=== PATIENT | male | born 1995 | race Hispanic/Latino ===

== ENCOUNTER 2016-12-31 12:50 | Emergency (ER) | payer SELFPAY | END 2016-12-31 12:51 | disposition left against medical advice (07) | LOC: ED 12:50 | DX: R10.2 Pelvic and perineal pain (principal); Z53.21 Procedure and treatment not carried out due to patient leaving prior to being seen by health care provider ==

== ENCOUNTER 2017-04-08 09:14 | Emergency (ER) | payer SELFPAY ==
[2017-04-08] MEDS ORDERED: PERCOCET 5/325 PO ONE (12:35)
--- NOTE | 2017-04-08 12:44 | Emergency Department Report ---
Entered by ASHLEY CASTAÑEDA, acting as scribe for NATHANIEL CARLOS PA. HPI - General Chief Complaint: Dental/Oral Time Seen by Provider: 04/08/17 11:51 - HPI HPI: 21 y/o male PMHx of diverticulitis and dental caries presents to the ED c/o right upper and lower wisdom toothaches and mouth pain for 3 days. Rates pain 10 /10 in severity. Patient describes pain as "someone carving into gums." He denies fever, chills, nausea, vomiting, headache, and facial swelling. Took [employer] with no relief. Notes Hx of similar dental pain symptoms. Patient was driven to the ED by family. [facility] Past Medical Hx - Past Medical History Previous Medical History?: Yes Additional medical history: DIVERTICULITIS, Bowel and intestinal problem when he was a child, Dental caries - Surgical History Past Surgical History?: No - Family History Family history: no significant - Social History Smoking Status: Current Every Day Smoker Substance Use Type: Non Opiate Pain - Medications Home Medications: Home Medications Medication Instructions Recorded Confirmed Last Taken Type Acetaminophen/Codeine [Tylenol 1 tab PO Q6H PRN #16 tab 04/08/17 Unknown Rx /Codeine # 3 tab] Amoxicillin [Amoxicillin TAB] 875 mg PO BID #20 tablet 04/08/17 Unknown Rx Ibuprofen [Motrin] 600 mg PO Q8H PRN #21 tablet 04/08/17 Unknown Rx ED Review of Systems ROS: Stated complaint: MOUTH PAIN Other details as noted in HPI Comment: All other systems reviewed and negative Constitutional: denies: chills, fever ENT: dental pain (right upper and lower wisdom tooth pain). denies: ear pain, throat pain, congestion Respiratory: no symptoms reported Cardiovascular: denies: chest pain, palpitations, edema, syncope Gastrointestinal: denies: abdominal pain, nausea, vomiting Musculoskeletal: denies: back pain, arthralgia Skin: denies: other (facial swelling) Neurological: denies: headache Physical Exam - Physical Exam Vital Signs: Vital Signs 04/08/17 09:28 Temperature 97.7 F Pulse Rate 87 Respiratory 20 Rate Blood Pressure 121/74 O2 Sat by Pulse 100 Oximetry General: General: well nourished, well developed, nontoxic in appearance, in no acute distress Physical Exam: Head: Normocephalic, atraumatic Mouth: Moist, no pharyngeal exudate or erythema. Uvula is midline and oral airway is patent. No facial swelling. No peritonsillar abscesses. No cavities present. Fractured right upper wisdom tooth #1. No gum swelling or inflammation present. Tongue is normal. Nose: Normal external appearance, no drainage. Maxillary and frontal sinuses nontender to palpation Neck: Supple, no C-spine tenderness, no tracheal deviation. Nontender to palpation. no adenopathy Ears: Bilateral TMs ar without any redness, swelling, or drainage. Bilateral EAC without any redness, swelling, or drainage. Abdomen: Soft, nontender to palpation in all quadrants, normal bowel sounds in all quadrants and negative CVA tenderness bilaterally. Eyes: Bilateral pupils equal and reactive to light, bilateral EOM intact. Bilateral sclera and conjunctiva without injection. Normal accommodation. Lungs: Clear to auscultation bilaterally, no rhonchi, wheezes, or rales. Normal work of breathing. No use of accessory muscles Extremities: No CCE. +2 pulses. No neurovascular compromise Cardiovascular: S1-S2, regular rate, regular rhythm. No murmurs. Skin: Clean, dry, and intact with no rash and no lesions Psych: Normal mood and behavior ED Course Vital Signs 04/08/17 09:28 Temperature 97.7 F Pulse Rate 87 Respiratory 20 Rate Blood Pressure 121/74 O2 Sat by Pulse 100 Oximetry - Reevaluation(s) Reevaluation #1: 04/08/17 12:36 given Percocet 2 tablets in emergency room for toothache. ED Medical Decision Making - Medical Decision Making ED course: Patient with toothache and here to manage pain. He was found to have fractured tooth to right upper with some tooth. No swelling or cellulitis noted. Nontender around tooth. Gums are normal and he is without cavities. Patient given Percocet 2 tablets in emergency room for toothache. I also with him diagnosis and treatment plan and he needs to follow up with [facility] dental clinic for further treatment of his toothache. He was understanding and discharged home with prescription for Tylenol 3, Motrin and amoxicillin. Critical care attestation.: If time is entered above; I have spent that time in minutes in the direct care of this critically ill patient, excluding procedure time. ED Disposition Clinical Impression: Toothache Fracture, tooth Qualifiers: Encounter type: initial encounter Fracture type: closed Qualified Code(s): S02.5XXA - Fracture of tooth (traumatic), initial encounter for closed fracture Disposition: DISCHARGED TO HOME OR SELFCARE Is pt being admited?: No Does the pt Need Aspirin: No Condition: Stable Instructions: Toothache (ED) Additional Instructions: Follow up with [facility]. Call today to schedule an appointment Please do not drive or operate heavy machinery while taking and Tylenol 3 as this medication will cause her to be drowsy. Prescriptions: Acetaminophen/Codeine [Tylenol /Codeine # 3 tab] 1 tab PO Q6H PRN #16 tab PRN Reason: Toothache Amoxicillin [Amoxicillin TAB] 875 mg PO BID #20 tablet Ibuprofen [Motrin] 600 mg PO Q8H PRN #21 tablet PRN Reason: Pain Referrals: [facility] [Outside] - 04/10/17 Forms: Accompanied Note, Work/School Release Form(ED) This documentation as recorded by the MADDY paiz JASMINE,accurately reflects the service I personally performed and the decisions made by ,NATHANIEL CARLOS PA.
[2017-04-08 12:49] VITALS: BP 126/70
== END 2017-04-08 12:51 | disposition home or self-care (01) ==
LOC: ED 09:14
DX: S02.5XXA Fracture of tooth (traumatic), initial encounter for closed fracture (principal); F17.200 Nicotine dependence, unspecified, uncomplicated; X58.XXXA Exposure to other specified factors, initial encounter; Y93.9 Activity, unspecified; Y92.89 Other specified places as the place of occurrence of the external cause; Y99.8 Other external cause status
CPT/HCPCS: 99282

== ENCOUNTER 2019-12-28 12:45 | Emergency (ER) | payer SELFPAY ==
[2019-12-28 13:45] VITALS: BP 113/65
[2019-12-28] MEDS ORDERED: ACETAMINOPHEN 500 MG TAB PO ONE (13:45)
[2019-12-28] MEDS ORDERED: ONDANSETRON 4 MG ODT TAB PO ONE (13:45)
--- NOTE | 2019-12-28 13:46 | Emergency Department Report ---
Chief Complaint: Abdominal Pain Stated Complaint: LUMP IN GROIN/ABD PAIN Time Seen by Provider: 12/28/19 13:45 - HPI History of Present Illness: 24 y/o male p/w llq pain left groin pain n/v " i think i have a hernia" labs ua needs gu and abd exam ok for minor care Vital Signs 12/28/19 13:43 Temperature 97.6 F Pulse Rate 89 Respiratory 189 H Rate Blood Pressure 113/65 O2 Sat by Pulse 100 Oximetry - Exam Vital Signs: Vital Signs 12/28/19 13:43 Temperature 97.6 F Pulse Rate 89 Respiratory 189 H Rate Blood Pressure 113/65 O2 Sat by Pulse 100 Oximetry MSE screening note: Focused history and physical exam performed. Due to findings the following was ordered: ED Disposition for MSE Condition: Stable
[2019-12-28 14:48] LABS: Hematocrit 43.6 % (35.5-45.6); Hemoglobin 15.1 gm/dl (11.8-15.2); Mean Corpuscular HGB Conc 35 % (32-34); Mean Corpuscular Volume 94 fl (84-94); Platelet Count 295 K/mm3 (140-440); Red Blood Count 4.65 M/mm3 (3.65-5.03); Red Cell Distribution Width 13.2 % (13.2-15.2)
[2019-12-28 15:14] LABS: BUN/Creatinine Ratio 15; Blood Urea Nitrogen 12 mg/dL (9-20); Calcium 9.4 mg/dL (8.4-10.2); Hemolysis Index 9
[2019-12-28] MEDS ORDERED: ONDANSETRON 4 MG ODT TAB ONE (21:11)
[2019-12-28] MEDS ORDERED: ACETAMINOPHEN 500 MG TAB ONE (21:11)
[2019-12-28] MEDS ORDERED: KETOROLAC 30 MG/1 ML INJ IV ONE (22:45)
[2019-12-28] MEDS ORDERED: ONDANSETRON 4 MG/2 ML INJ IV ONE (22:45)
[2019-12-28] MEDS ORDERED: SODIUM CHLORIDE 0.9% 1000 ML 1,000 ML IV ONE (22:45)
[2019-12-28 23:36] LABS: Alanine Aminotransferase 19 units/L (7-56); Albumin 4.2 g/dL (3.9-5)
[2019-12-28 23:38] LABS: Bilirubin,Direct < 0.2 mg/dL (0-0.2)
--- NOTE | 2019-12-29 00:16 | Cat Scan Report ---
CT ABDOMEN AND PELVIS WITH CONTRAST HISTORY: Pt complains of L.L.Q. abdominal pain w/ vomiting.. COMPARISON: None. TECHNIQUE: CT images of the abdomen and pelvis were obtained following administration of intravenous contrast. All CT scans at this location are performed using CT dose reduction for ALARA by means of automated exposure control. CONTRAST: 100 ml of intravenous contrast administered. FINDINGS: Lungs/bones: Lung bases are clear. No acute osseous abnormality. Abdomen/pelvis: The liver, gallbladder, spleen, pancreas, adrenals, left kidney, and proximal GI tra ct appear unremarkable. A tiny simple cyst is seen in the midpole of the kidney. The mid to distal small bowel is slightly prominent and fluid-filled with areas of mild mucosal enhan cement. Similar findings extend into the proximal colon. The urinary bladder and prostate appear normal. No pelvic free fluid. The appendix is normal. There are enlarged inguinal lymph nodes measuring greater than 1 cm in short axis. IMPRESSION: 1. Bowel findings are nonspecific but can be seen with enteritis. 2. Incidental left inguinal adenopathy Signer Name: Nicolas Zafar MD Signed: 12/29/2019 12:11 AM Workstation Name: [id number]
--- NOTE | 2019-12-29 00:46 | Emergency Department Report ---
ED Abdominal Pain HPI - General Chief Complaint: Abdominal Pain Stated Complaint: LUMP IN GROIN/ABD PAIN Time Seen by Provider: 12/28/19 13:45 Source: patient Mode of arrival: Ambulatory Limitations: No Limitations - History of Present Illness Initial Comments: Patient is a 24-year-old white male with no past medical history who presents to the ED with a competent of acute onset persistent left lower quadrant abdominal pain but it is in the left inguinal area with swollen lymph nodes for the last 1 week, worse in the last 2 days with nausea and vomiting. Patient denies testicular pain, hematuria, dysuria, urinary frequency and urgency, traumatic injury, headache, low back pain, diarrhea, dizziness, syncope or numbness and tingling and weakness of lower extremities bilaterally. 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 MD Complaint: abdominal pain, other (left inguinal pain; Nausea and vomiting) -: Sudden, week(s) (1) Location: LLQ Radiation: none Migration to: no migration Severity scale (0 -10): 6 Quality: cramping, aching, sharp Consistency: constant Improves With: nothing Worsens With: vomiting, movement Associated Symptoms: denies other symptoms, nausea, vomiting, anorexia. denies: diarrhea, fever, chills, dysuria, hematemesis, hematochezia, melena, hematuria, syncope, other - Related Data Previous Rx's Medication Instructions Recorded Last Taken Type Acetaminophen/Codeine [Tylenol 1 tab PO Q6H PRN #16 tab 04/08/17 Unknown Rx /Codeine # 3 tab] Amoxicillin [Amoxicillin TAB] 875 mg PO BID #20 tablet 04/08/17 Unknown Rx Ibuprofen [Motrin] 600 mg PO Q8H PRN #21 tablet 04/08/17 Unknown Rx DOXYCYCLINE Hyclate [Vibramycin 100 mg PO Q12HR #20 capsule 12/29/19 Unknown Rx CAP] Ibuprofen [Motrin] 600 mg PO Q8H PRN #30 tablet 12/29/19 Unknown Rx Ondansetron [Zofran Odt] 4 mg PO Q6HR PRN #20 tab.rapdis 12/29/19 Unknown Rx traMADoL [Ultram] 50 mg PO Q6HR PRN #15 tablet 12/29/19 Unknown Rx Allergies Allergy/AdvReac Type Severity Reaction Status Date / Time No Known Allergies Allergy Verified 12/28/19 21:27 ED Review of Systems ROS: Stated complaint: LUMP IN GROIN/ABD PAIN Other details as noted in HPI Constitutional: denies: chills, fever Eyes: denies: eye pain, eye discharge, vision change ENT: denies: ear pain, throat pain Respiratory: denies: cough, shortness of breath, wheezing Cardiovascular: denies: chest pain, palpitations Endocrine: no symptoms reported Gastrointestinal: abdominal pain, nausea, vomiting. denies: diarrhea Genitourinary: other (left inguinal pain). denies: urgency, dysuria, frequency, hematuria, testicular pain, testicular mass Musculoskeletal: denies: back pain, joint swelling, arthralgia Skin: denies: rash, lesions Neurological: denies: headache, weakness, paresthesias Psychiatric: denies: anxiety, depression Hematological/Lymphatic: denies: easy bleeding, easy bruising ED Past Medical Hx - Past Medical History Previous Medical History?: Yes Additional medical history: DIVERTICULITIS, Bowel and intestinal problem when he was a child, Dental caries - Surgical History Past Surgical History?: No - Social History Smoking Status: Current Every Day Smoker Substance Use Type: Marijuana - Medications Home Medications: Home Medications Medication Instructions Recorded Confirmed Last Taken Type Acetaminophen/Codeine [Tylenol 1 tab PO Q6H PRN #16 tab 04/08/17 Unknown Rx /Codeine # 3 tab] Amoxicillin [Amoxicillin TAB] 875 mg PO BID #20 tablet 04/08/17 Unknown Rx Ibuprofen [Motrin] 600 mg PO Q8H PRN #21 tablet 04/08/17 Unknown Rx DOXYCYCLINE Hyclate [Vibramycin 100 mg PO Q12HR #20 capsule 12/29/19 Unknown Rx CAP] Ibuprofen [Motrin] 600 mg PO Q8H PRN #30 tablet 12/29/19 Unknown Rx Ondansetron [Zofran Odt] 4 mg PO Q6HR PRN #20 tab.rapdis 12/29/19 Unknown Rx traMADoL [Ultram] 50 mg PO Q6HR PRN #15 tablet 12/29/19 Unknown Rx ED Physical Exam - General Limitations: No Limitations General appearance: alert, in no apparent distress - Head Head exam: Present: atraumatic, normocephalic, normal inspection - Eye Eye exam: Present: normal appearance, PERRL, EOMI Pupils: Present: normal accommodation - ENT ENT exam: Present: normal exam, normal orophraynx, mucous membranes moist, TM's normal bilaterally, normal external ear exam - Neck Neck exam: Present: normal inspection, full ROM - Respiratory Respiratory exam: Present: normal lung sounds bilaterally. Absent: respiratory distress, wheezes, rales, rhonchi, chest wall tenderness, accessory muscle use, decreased breath sounds - Cardiovascular Cardiovascular Exam: Present: regular rate, normal rhythm, normal heart sounds. Absent: systolic murmur, diastolic murmur, rubs, gallop - GI/Abdominal GI/Abdominal exam: Present: soft, tenderness (palpable mild LLQ tenderness), normal bowel sounds, other (Palpable left inguinal tenderness due to prominently swollen tender left inguinal lymph nodes). Absent: guarding, rebound - Extremities Exam Extremities exam: Present: normal inspection, full ROM, normal capillary refill - Back Exam Back exam: Present: normal inspection, full ROM. Absent: tenderness, CVA tenderness (R), CVA tenderness (L), muscle spasm, paraspinal tenderness, vertebral tenderness - Neurological Exam Neurological exam: Present: alert, oriented X3, CN II-XII intact, normal gait, reflexes normal - Psychiatric Psychiatric exam: Present: normal affect, normal mood - Skin Skin exam: Present: warm, dry, intact, normal color. Absent: rash ED Course Vital Signs 12/28/19 12/28/19 12/28/19 13:43 21:13 23:11 Temperature 97.6 F Pulse Rate 89 Respiratory 18 18 18 Rate Blood Pressure 113/65 O2 Sat by Pulse 100 Oximetry ED Medical Decision Making - Lab Data Result diagrams: 12/28/19 14:31 12/28/19 14:31 - Radiology Data Radiology results: report reviewed, image reviewed Abdomen pelvis CT scan with contrast shows nonspecific bowel findings consistent with enteritis. It also is incidentally shows left inguinal adenopathy - Medical Decision Making This is a 24-year-old male who presented to the ED with persistent severe left inguinal pain with swollen lymph nodes and pain that radiates to the left lower quadrant area with nausea and vomiting. In the ED, patient is alert and oriented 3 and is not in distress. Lab test results were reviewed and shows acute leukocytosis of 15,200. The rest of the lab test results were nonactionable. Abdomen pelvis CT scan with contrast shows nonspecific bowel findings consistent with enteritis and an incidental finding of left inguinal adenopathy. Patient was treated for pain in the ED and also received antiemetics and normal saline IV bolus. - Differential Diagnosis Colitis; Inguinal lymphadenopathy; Inguinal hernia; Kidney stones Critical care attestation.: If time is entered above; I have spent that time in minutes in the direct care of this critically ill patient, excluding procedure time. ED Disposition Clinical Impression: Inguinal lymphadenopathy, Nausea and vomiting in adult, Abdominal pain in male Disposition: TO HOME OR SELFCARE Is pt being admited?: No Does the pt Need Aspirin: No Condition: Stable Instructions: Lymphadenopathy (ED), Acute Nausea and Vomiting (ED), Abdominal Pain (ED) Additional Instructions: Take medication with food, drink plenty of fluids and follow-up with her primary care physician in 7-10 days for reevaluation. Return to the ED immediately if symptoms get worse. Prescriptions: Ibuprofen [Motrin] 600 mg PO Q8H PRN #30 tablet PRN Reason: Pain traMADoL [Ultram] 50 mg PO Q6HR PRN #15 tablet PRN Reason: Pain DOXYCYCLINE Hyclate [Vibramycin CAP] 100 mg PO Q12HR #20 capsule Ondansetron [Zofran Odt] 4 mg PO Q6HR PRN #20 tab.rapdis PRN Reason: Nausea Referrals: LENO CUBA MD [Staff Physician] - 3-5 Days Forms: Work/School Release Form(ED) Time of Disposition: :04 Print Language: LATVIAN
[2019-12-29 02:46] LABS: Bilirubin,Urine NEG (Negative); Blood,Urine NEG (Negative); Color,Urine Yellow (Yellow); Mucus,Urine FEW /HPF; Protein,Urine <15 mg/dL mg/dL (Negative); Urobilinogen,Urine < 2.0 mg/dL (<2.0)
== END 2019-12-29 04:09 | disposition home or self-care (01) ==
LOC: ED 12:45
DX: R59.0 Localized enlarged lymph nodes (principal); F12.10 Cannabis abuse, uncomplicated; F17.200 Nicotine dependence, unspecified, uncomplicated
CPT/HCPCS: 36415; 74177; 80048; 80076; 81001; 82550; 83690; 83735; 85027; 96361; 96374; 96375; 99284; J1885; J2405; J7030; Q9967; Q0162

== ENCOUNTER 2021-05-20 17:44 | Emergency (ER) | payer SELFPAY ==
[2021-05-20 18:03] VITALS: BP 114/64
== END 2021-05-20 22:35 | disposition left against medical advice (07) ==
LOC: ED 17:44
DX: S89.92XA Unspecified injury of left lower leg, initial encounter (principal); Z53.21 Procedure and treatment not carried out due to patient leaving prior to being seen by health care provider; X58.XXXA Exposure to other specified factors, initial encounter; Y93.89 Activity, other specified; Y92.89 Other specified places as the place of occurrence of the external cause; Y99.8 Other external cause status

== ENCOUNTER 2022-04-03 21:40 | Emergency (ER) | payer SELFPAY | END 2022-04-03 22:00 | disposition left against medical advice (07) | LOC: ED 21:40 | DX: K92.1 Melena (principal); Z53.21 Procedure and treatment not carried out due to patient leaving prior to being seen by health care provider ==

== ENCOUNTER 2022-08-16 18:47 | Emergency (ER) | payer SELFPAY | END 2022-08-17 11:52 | disposition left against medical advice (07) | LOC: ED 18:47 | DX: M25.569 Pain in unspecified knee (principal); Z53.21 Procedure and treatment not carried out due to patient leaving prior to being seen by health care provider ==